=== PATIENT | female | born 1935 | race African-American/Black ===

== ENCOUNTER 2019-09-21 07:00 | Day surgery (SDC) | payer MEDICARE, BC ==
[~2019-09-21] VITALS: Ht 160 cm; Wt 56.2 kg
[2019-09-21 07:48] LABS: APTT 30.4 SECONDS (22.8-39.4); INR 1.05 (0.85-1.17); PROTIME 13.6 SECONDS (11.6-15.0)
[2019-09-21 07:54] LABS: ANION GAP 17.9 mmol/L (8-16); BASOPHILS 0.4 % (0-2); CALCIUM 7.7 mg/dL (8.5-10.1); CARBON DIOXIDE 23.9 mmol/L (21.0-32.0); CREATININE - SERUM 9.6 mg/dL (0.6-1.3); EOSINOPHILS 4.2 % (0-7); HEMATOCRIT 38.9 % (36.0-48.0); HEMOGLOBIN 11.5 g/dL (12-16); IMMATURE GRANULOCYTES 0.2 % (0-5); LYMPHOCYTES 28.1 % (15-50); MCH 26.4 pg (26.0-34.0); MCHC 29.6 g/dL (31.0-37.0); MCV 89.4 fL (80.0-100.0); MONOCYTES 10.7 % (2-11); NEUTROPHILS 56.4 % (40-80); PLATELET COUNT 197 10x3/uL (130-400); POTASSIUM - SERUM 4.8 mmol/L (3.5-5.1); RBC 4.35 10x6/uL (4.00-5.40); RDW 15.6 % (11.5-14.5); WBC 5.7 10x3/uL (4.8-10.8)
[2019-09-21] MEDS ORDERED: LOW DOSE ASPIRI81 M1 PO (10:36)
[2019-09-21] MEDS ORDERED: PACERONE200 MG PO (10:36)
[2019-09-21] MEDS ORDERED: COLACE100 MG PO (10:37)
[2019-09-21] MEDS ORDERED: ISOSORBIDE MONO30 M1 PO (10:37)
[2019-09-21] MEDS ORDERED: LASIX80 MG PO (10:38)
[2019-09-21] MEDS ORDERED: NEPHRO-VITE RX1 TAB (10:38)
[2019-09-21] MEDS ORDERED: NORVASC5 MG PO (10:39)
[2019-09-21] MEDS ORDERED: NITROSTAT0.4 MG SL (10:39)
[2019-09-21] MEDS ORDERED: PHOSLO667 MG PO (10:40)
[2019-09-21] MEDS ORDERED: PROTONIX40 MG PO (10:40)
[2019-09-21] MEDS ORDERED: SENSIPAR30 MG PO (10:41)
[2019-09-21] MEDS ORDERED: ZETIA10 MG PO (10:41)
[2019-09-21] MEDS ORDERED: RENVELA800 MG PO (10:41)
[2019-09-21 10:43] VITALS: Ht 160 cm; Wt 56.2 kg
--- NOTE | 2019-09-21 20:22 | NUR ---
1500 IV REMOVED AND PRESSURE HELD AND DRESSING APPLIED. POST OP INSTRUCTIONS GIVEN TO PT. ASSISTED WITH GETTING DRESSED.
--- NOTE | 2019-09-25 20:50 | OP ---
PATIENT NAME: ANTWON BETANCOURT MEDICAL RECORD: [id number] :36 [facility] AD[facility]ION DATE: SURGEON: SALMA ELIZALDE MD DATE OF OPERATION: 09/21/2019 She was referred by Dr. Land of [place]. PREOPERATIVE DIAGNOSES: End-stage renal disease and dependence on hemodialysis and chronic steal syndrome, ischemic symptoms in the left upper extremity. POSTOPERATIVE DIAGNOSES: End-stage renal disease and dependence on hemodialysis and chronic steal syndrome, ischemic symptoms in the left upper extremity. OPERATION PERFORMED: Ligation of AV fistula, left arm. SURGEON: Salma Elizalde MD ANESTHESIA: General with LMA per [employer]SEM[employer]ER. PREOPERATIVE NOTE: Ms. Betancourt is an 84-year-old -Swiss female from [place], [place] who has dialysis in [place] on Tuesdays, and Saturdays with a tunneled dialysis catheter on the right. She also has a longstanding chronic left brachiocephalic AV fistula that is having worsening chronic ischemic symptoms due to steal syndrome. She is brought to the hospital and to the operating room today as an outpatient in order to ligate the fistula. I had contemplated placing a graft to proximalize the arterial source of blood flow, but I have elected instead just to ligate the fistula at this point and then when her pain is better, we will evaluate her further with bilateral upper extremity CTA and then plan a new access, which probably will be approximately based graft possibly even in the left arm. DESCRIPTION OF PROCEDURE: Under general anesthesia, the patient was prepped and draped in a sterile manner. I made a transverse incision over it and exposed the cephalic vein just proximal to the AV fistula anastomosis and it was multiply ligated with 2-0 silk. The wound was then infiltrated with 0.25% Marcaine without epinephrine and closed with interrupted inverted 3-0 Vicryl subcuticular sutures and Dermabond glue and was dressed with Maxorb Ag, Tegaderm, and Cavilon skin prep. She was awakened and taken to the recovery room in a stable condition. Blood loss during the operation was nil and unreplaced. Sponges, instruments, and needles were accounted for. No drain was used and no surgical specimen was submitted for histopathology PLAN: The patient will be discharged to go home today. She will be advised to use ice off and on to the elbow area for pain and take Tylenol. No new prescriptions are given. She is to continue her home medications, same diet and dialysis schedule. I will see her back in my office in about 2 weeks and I will try to see that arrangements were made for her to have bilateral upper extremity. CTAs on that visit trying to minimize the number of trips that have to be made back and forth [facility]. TRANSINT:[id number] Voice Confirmation ID: [id number] DOCUMENT ID: [id number] cc: [place] [facility] OPERATIVE REPORT [id number] ANTWON BETANCOURT JAMES MD at 2050 CC: JAJA HURST and JAJA LAND MD [id number] DICTATION DATE: 09/21/19 1441 DEPARTMENT STORE GENERAL MANAGER: 09/21/19 [facility]/21[facility]19 [id number] [place] [address]
== END 2019-09-21 15:15 | disposition home or self-care (01) ==
LOC: D.OPS 07:00
PROVIDERS: Surgery; ATTEND Internal Medicine Nephrology
DX: N18.6 End stage renal disease (principal); T82.898A Other specified complication of vascular prosthetic devices, implants and grafts, initial encounter; Z99.2 Dependence on renal dialysis; T82.590A Other mechanical complication of surgically created arteriovenous fistula, initial encounter

== ENCOUNTER → 2019-11-16 09:07 | Outpatient (CLI) | payer MEDICARE, BC ==
[2019-09-21 10:43] VITALS: BMI 22.0
[~2019-11-16 09:07] MED LIST: COLACE100 MG PO; ISOSORBIDE MONO30 M1 PO; LASIX80 MG PO; LOW DOSE ASPIRI81 M1 PO; NEPHRO-VITE RX1 TAB; NITROSTAT0.4 MG SL; NORVASC5 MG PO; PACERONE200 MG PO; PHOSLO667 MG PO; PROTONIX40 MG PO; RENVELA800 MG PO; SENSIPAR30 MG PO; ZETIA10 MG PO
== END | disposition home or self-care (01) ==
LOC: D.CT 11-12 10:30
PROVIDERS: ATTEND Surgery
DX: I70.213 Atherosclerosis of native arteries of extremities with intermittent claudication, bilateral legs (principal); I65.23 Occlusion and stenosis of bilateral carotid arteries; I99.8 Other disorder of circulatory system

== ENCOUNTER → 2019-11-23 09:40 | Outpatient (CLI) | payer MEDICARE, BC ==
[2019-09-21 10:43] VITALS: BMI 22.0
== END | disposition home or self-care (01) ==
LOC: D.CT 09:40
PROVIDERS: ATTEND Surgery
DX: I70.218 Atherosclerosis of native arteries of extremities with intermittent claudication, other extremity (principal); I73.9 Peripheral vascular disease, unspecified; I99.8 Other disorder of circulatory system